=== PATIENT | female | born 1955 | race Caucasian/White ===

== ENCOUNTER 2023-04-25 20:44 | Outpatient (CLI) | payer MEDICARE, BC, SELFPAY | END 2023-04-25 20:45 | disposition home or self-care (01) | LOC: SLEEP 20:52 | DX: G47.33 Obstructive sleep apnea (adult) (pediatric) (principal) | CPT/HCPCS: 95811 ==

== ENCOUNTER 2025-01-10 12:47 | Outpatient (CLI) | payer MEDICARE, BC, SELFPAY ==
--- NOTE | 2025-01-10 13:00 | MR_ITS ---
[address] [address] Phone:?[phone] Fax:?[phone] Referring Physician Information: Duglas Saeed [address] [facility] [address] Phone:?[phone] Fax:?[phone] Patient:?Lawanda Coleman D.O.B:?1955 Sex:?Female Phone:?[phone] [facility] MRN:?[id number] Exam Date:?01/10/2025 EXAM: MRI OF THE LEFT SHOULDER CLINICAL INFORMATION: The patient is a 69-year-old with left shoulder pain. Evaluate glenohumeral joint. Evaluate for rotator cuff tear. PRIOR SURGERY: None reported. COMPARISON STUDIES: Comparison is made to prior radiographs dated 12/28/2024. TECHNICAL INFORMATION: Imaging was performed on a high-field, 1.5 Cathleen MR scanner. Axial, coronal, and sagittal proton-density and T2 imaging of the left shoulder was performed in addition to coronal STIR imaging. FINDINGS: Articular/Extraarticular collections: Effusion: A moderate glenohumeral joint effusion is present. Low signal intensity debris within the joint space can be seen, in keeping with synovitis. Small loose bodies within the joint space cannot be excluded. Subacromial/subdeltoid: No evidence for bursitis. Subcoracoid: No evidence for bursitis. Osseous structures: Proximal humerus: No evidence for acute bony abnormality of the proximal humerus can be seen. There is no evidence for greater or lesser tuberosity fracture. No Hill-Sachs or reverse Hill-Sachs lesion is identified. Glenoid: Cortical irregularity and subcortical cystic change can be seen along the articular surfaces of the glenoid, in keeping with chondral loss discussed below. The findings may relate to degenerative or inflammatory changes along the articular surfaces of the glenohumeral joint. Acromioclavicular joint: Mild changes of acromioclavicular joint arthrosis are present. Coracoacromial arch: Acromion morphology: Type II. No evidence for os acromiale. Acromiohumeral space: Moderately narrowed. Coracohumeral space: Mildly narrowed. Rotator cuff and deltoid: Supraspinatus: Mild to moderate changes of supraspinatus tendinosis can be seen. There is no evidence for full or partial-thickness tearing. No atrophic changes of the supraspinatus muscle belly are identified. Infraspinatus: Mild to moderate infraspinatus tendinosis can be seen. There is no evidence for full or partial-thickness tearing. No atrophic changes of the infraspinatus muscle belly are present. Teres minor: No evidence for tendinosis, tearing, or associated muscle belly atrophy. Subscapularis: Mild to moderate subscapularis tendinosis can be seen. There is no evidence for full or partial-thickness tearing. No atrophic changes of the subscapularis muscle belly are noted Deltoid: No evidence for strain or tearing. Biceps tendon: The intra-articular and biceps sulcus portions of the biceps tendon are normal. There is no evidence for rupture, dislocation, or subluxation. Glenohumeral joint and labrum: Articular Cartilage: Areas of full-thickness and near full-thickness chondral loss can be seen along the articular surfaces of the glenohumeral articulation. There is cortical irregularity along the articular surfaces with areas of increased subcortical signal intensity along the glenoid articular surfaces. The findings are in keeping with osteoarthritic or inflammatory changes of the glenohumeral joint. Labrum: Degeneration and irregularity of the glenoid labrum can be seen without definite areas of well-defined tearing. No paralabral ganglion cyst formation is seen. Capsular Soft Tissues: Nonspecific thickening of the capsular structures can be seen in the region of the axillary recess and rotator cuff interval. The findings may relate to changes of adhesive capsulitis. CONCLUSION: 1. Nonspecific arthrosis of the glenohumeral joint with a moderate effusion and prominent synovitis. Loose bodies within the joint space cannot be excluded. 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 The findings may relate to osteoarthritic or inflammatory changes. 2. Mild to moderate supraspinatus, infraspinatus, and subscapularis tendinosis. No full or partial-thickness rotator cuff tearing is seen. 3. Nonspecific capsular thickening, possibly related to adhesive capsulitis. 4. No definite evidence for well-defined tearing of the glenoid labrum or long head of the biceps can be seen. [facility] Electronically signed on 01/10/2025 3:44:00 PM by Tez Mathew M.D.
== END 2025-01-10 12:48 | disposition home or self-care (01) ==
LOC: MRI 12:50
PROVIDERS: PCP Internal Medicine; Visit Provider Physician Assistant
DX: M25.512 Pain in left shoulder (principal); M19.012 Primary osteoarthritis, left shoulder; M25.412 Effusion, left shoulder; M75.02 Adhesive capsulitis of left shoulder
CPT/HCPCS: 73221